=== PATIENT | male | born 1985 | race Caucasian/White ===

== ENCOUNTER 2019-10-22 10:37 | Emergency (ER) | payer SELFPAY ==
[~2019-10-22] VITALS: Ht 175.3 cm; Wt 79.5 kg
[2019-10-22 11:17] VITALS: BP 145/67
[2019-10-22] MEDS ORDERED: fentaNYL PF VIAL 100 MCG/2 ML VIAL IM STA (12:08)
--- NOTE | 2019-10-22 12:26 | PHYS DOC ---
Past Medical History Past Medical History: No Pertinent History Smoking Status: Never Smoker Alcohol Use: Occasionally Adult General Chief Complaint Chief Complaint: LOWER BACK PAIN OR INJURY HPI HPI Patient is a 34 year old male who presents with lower back pain after he fell off his front porch onto his chain-link fence on Monday. The patient rates his pain 10 out of 10 in severity and reports lumbar and thoracic tenderness. Denies take any medicine prior to arrival with exception ibuprofen. Denies blood thinner use. Complete ROS were reviewed and found to be within normal limits, except as doc umented in the HPI Current Medications Current Medications Current Medications Medications (Trade) Dose Ordered Sig/Rodney Start Time Stop Time Status Last Admin Dose Admin Fentanyl Citrate (Fentanyl 2ml Vial) 100 mcg 1X STAT 10/22/19 12:08 10/22/19 12:11 DC 10/22/19 12:30 100 MCG Allergies Allergies Allergies Coded Allergies Type Severity Reaction Last Updated Verified doxycycline Allergy Severe rash 10/22/19 Yes Physical Exam Physical Exam Constitutional: Well developed, well nourished, no acute distress, non-toxic appearance. [] HENT: Normocephalic, atraumatic, bilateral external ears normal, oropharynx moist, no oral exudates, nose normal. [] Eyes: PERRLA, EOMI, conjunctiva normal, no discharge. [] Skin: Warm, dry, no erythema, no rash. [] Back: No tenderness, no CVA tenderness. [] Extremities: Lumbar and Throacic spine tenderness on palpation. No bruising or edema noted. Neurologic: Alert and oriented X 3, normal motor function, normal sensory f unction, no focal deficits noted. [] Psychologic: Affect normal, judgement normal, mood normal. [] Current Patient Data Vital Signs Vital Signs Date Time Temp Pulse Resp B/P (MAP) Pulse Ox O2 Delivery O2 Flow Rate FiO2 10/22/19 11:17 97.8 71 16 145/67 (93) 99 Room Air 97.8 EKG EKG [] Radiology/Procedures Radiology/Procedures [][facility] [address] [place] [address] IMAGING REPORT Signed PATIENT: ALLISON WILKES ACCOUNT: [id number] : 1985 LOCATION: ER AGE: 34 SEX: M EXAM STATUS: REG ER ORD. PHYSICIAN: DOMINIQUE ANNE APRN REASON: fall, back pain PROCEDURE: CT THORACIC SPINE WO CONTRAST PQRS Compliance Statement: One or more of the following individualized dose reduction techniques were utilized for this examination: 1. Automated exposure control 2. Adjustment of the mA and/or kV according to patient size 3. Use of iterative reconstruction technique CT LUMBAR SPINE WO CONTRAST, CT THORACIC SPINE WO CONTRAST Clinical Indication: Fall, back pain. Comparison: None. TECHNIQUE: Helical CT imaging of the thoracic and lumbar spine is performed without IV contrast. Findings: There is no acute fracture of the thoracic spine. The vertebral body height and alignment are maintained. There is no disc space narrowing. 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 No narrowing of the central canal is seen. No bony neural foraminal narrowing is seen. Visualized lungs are clear. There is no acute fracture of the lumbar spine. The sacroiliac joints are symmetric. The vertebral body height and alignment are maintained. There is no disc space narrowing. No significant narrowing of the central canal. No significant spondylitic disc is seen. There is no high-grade neural foraminal narrowing seen. Visualized retroperitoneum is unremarkable. IMPRESSION: There is no acute fracture or malalignment of the thoracic or lumbar spine. Electronically signed by: Paulo Green MD (10/22/2019 1:04 PM) [id number] DICTATED and SIGNED BY: PAULO GREEN MD DATE: 10/22/19 1304 Course & Med Decision Making Course & Med Decision Making Pertinent Labs and Imaging studies reviewed. (See chart for details) Will get CT lumbar and thoracic. Will give supportive care. Imaging is negative. Will d/c home with Norflex. Dragon Disclaimer Dragon Disclaimer This electronic medical record was generated, in whole or in part, using a voice recognition dictation system. Departure Departure Impression: Primary Impression: Fall Disposition: HOME, SELF-CARE Condition: STABLE Referrals: NO PCP (PCP) Additional Instructions: Thank you for visiting [facility]. We appreciate you trusting us with your care. If any additional problems come up don't hesitate to return to visit us. Please follow up with your primary care provider so they can plan additional care if needed and know about the problem that you had. If symptoms worsen come back to the Emergency Department. Any concerning symptoms that start such as chest pain, shortness of air, weakness or numbness on one side of the body, running high fevers or any other concerning symptoms return to the ER. Scripts Orphenadrine Citrate (ORPHENADRINE CITRATE) 100 Mg Tablet.er 100 MG PO BID PRN for MUSCLE PAIN for 5 Days, #10 TAB.SR Prov: DOMINIQUE ANNE APRN 10/22/19 Problem Qualifiers Primary Impression: Fall Encounter type: initial encounter Qualified Codes: W19.XXXA - Unspecified fall, initial encounter DOMINIQUE ANNE APRN Oct 22, 2019 12:26
--- NOTE | 2019-10-22 13:07 | RAD ---
PQRS Compliance Statement: One or more of the following individualized dose reduction techniques were utilized for this examination: 1. Automated exposure control 2. Adjustment of the mA and/or kV according to patient size 3. Use of iterative reconstruction technique CT LUMBAR SPINE WO CONTRAST, CT THORACIC SPINE WO CONTRAST Clinical Indication: Fall, back pain. Comparison: None. TECHNIQUE: Helical CT imaging of the thoracic and lumbar spine is performed without IV contrast. Findings: There is no acute fracture of the thoracic spine. The vertebral body height and alignment are maintained. There is no disc space narrowing. 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 No narrowing of the central canal is seen. No bony neural foraminal narrowing is seen. Visualized lungs are clear. There is no acute fracture of the lumbar spine. The sacroiliac joints are symmetric. The vertebral body height and alignment are maintained. There is no disc space narrowing. No significant narrowing of the central canal. No significant spondylitic disc is seen. There is no high-grade neural foraminal narrowing seen. Visualized retroperitoneum is unremarkable. IMPRESSION: There is no acute fracture or malalignment of the thoracic or lumbar spine. Electronically signed by: Paulo Mora MD (10/22/2019 1:04 PM) [id number]
[2019-10-22] MEDS ORDERED: ORPH100T PO (13:57)
== END 2019-10-22 15:05 | disposition home or self-care (01) ==
LOC: ER 10:37
DX: G89.11 Acute pain due to trauma (principal); M54.5 Low back pain; M54.6 Pain in thoracic spine; Z88.1 Allergy status to other antibiotic agents; W19.XXXA Unspecified fall, initial encounter; Y93.89 Activity, other specified; Y92.89 Other specified places as the place of occurrence of the external cause; Y99.8 Other external cause status
CPT/HCPCS: 72128; 72131; 96372; 99285; J3010

== ENCOUNTER 2021-05-04 20:24 | Emergency (ER) | payer SELFPAY ==
[~2021-05-04] VITALS: Ht 172.7 cm; Wt 81.0 kg
[~2021-05-04 20:24] MED LIST: ORPH100T PO
[2021-05-04 20:42] VITALS: BP 157/95
--- NOTE | 2021-05-04 21:15 | PHYS DOC ---
Past Medical History Past Medical History: No Pertinent History Past Surgical History: Tonsillectomy Smoking Status: Never Smoker Alcohol Use: Occasionally General Adult EDM: Chief Complaint: WEAKNESS/GENERALIZED HPI: HPI: Patient is a 35 year old who is been vaccinated against COVID-19 presents with a chief complaint of generalized weakness and shortness of breath. Patient states symptoms been ongoing for 1 day. States he has been recently exposed to Covid positive family member. Patient states he previously had Covid and had the same exact symptoms he has now. Patient is requesting a Covid test due to having young family at home particularly a 1-year-old child. Patient is not hypoxic oxygen saturation 99 200% on room air. Review of Systems: Review of Systems: Review of systems: Constitutional symptoms- No fever, no chills. Eyes- No Discharge, No Visual Loss Respiratory symptoms- Positive shortness of breath, No wheezing, No Dyspnea on Exertion Cardiovascular Systems; No chest pain, No Palpitations, No syncope Gastrointestinal symptoms: NO abdominal pain, no nausea, no vomiting or diarrhea. Genitourinary symptoms: No dysuria. Musculoskeletal symptoms: No back pain No extremity pain. NEUROLOGICAL Symptoms: No headache, Positive generalized weakness; No focal Weakness Skin: No rash. Heart Score: C/O Chest Pain: N/A Risk Factors: Risk Factors: DM, Current or recent (<one month) smoker, HTN, HLP, family history of CAD, obesity. Risk Scores: Score 0 - 3: 2.5% MACE over next 6 weeks - Discharge Home Score 4 - 6: 20.3% MACE over next 6 weeks - Admit for Clinical Observation Score 7 - 10: 72.7% MACE over next 6 weeks - Early Invasive Strategies Allergies: Allergies: Allergies Coded Allergies Type Severity Reaction Last Updated Verified doxycycline Allergy Severe rash 10/22/19 Yes Physical Exam: PE: Constitutional: Well developed, well nourished, no acute distress, non-toxic appearance. [] HENT: Normocephalic, atraumatic, bilateral external ears normal, oropharynx moist, no oral exudates, nose normal. [] Eyes: PERRLA, EOMI, conjunctiva normal, no discharge. [] Neck: Normal range of motion, no tenderness, supple, no stridor. [] Cardiovascular:Heart rate regular rhythm, no murmur [] Lungs & Thorax: Bilateral breath sounds clear to auscultation [] Abdomen: Bowel sounds normal, soft, no tenderness, no masses, no pulsatile masses. [] Skin: Warm, dry, no erythema, no rash. [] Back: No tenderness, no CVA tenderness. [] Extremities: No tenderness, no cyanosis, no clubbing, ROM intact, no edema. [] Neurologic: Alert and oriented X 3, normal motor function, normal sensory function, no focal deficits noted. [] Psychologic: Affect normal, judgement normal, mood normal. [] Current Patient Data: Vital Signs: Vital Signs Date Time Temp Pulse Resp B/P (MAP) Pulse Ox O2 Delivery O2 Flow Rate FiO2 05/04/21 20:42 98.0 73 18 157/95 (115) 99 Room Air 98.0 EKG: EKG: [] Radiology/Procedures: Radiology/Procedures: [] Course & Med Decision Making: Course & Med Decision Making Pertinent Labs and Imaging studies reviewed. (See chart for details) [] Dragon Disclaimer: [employer] Disclaimer: This electronic medical record was generated, in whole or in part, using a voice recognition dictation system. Departure Departure Impression: Primary Impression: Person under investigation for COVID-19 Disposition: HOME / SELF CARE / HOMELESS Condition: STABLE Referrals: NO PCP (PCP) Patient Instructions: Fatigue, Viral Syndrome Additional Instructions: You have been tested for or diagnosed with COVID-19. It is an infection caused by a new type of coronavirus. COVID-19 will cause cold-like or mild flu symptoms in most. It can cause more severe symptoms like problems breathing in some. There is no treatment for COVID-19. The body will clear the infection over time. Self-care will help to ease discomfort. Steps to Take: Self-Care Rest as needed. Healthy habits may help you feel better. Steps include: Choose healthy foods including fruits and vegetables. Drink water throughout the day. Get plenty of sleep each night. If you smoke, try to quit. It may ease breathing. Avoid alcohol. Keep Others Healthy The virus can spread to others. Droplets are released every time you sneeze or cough. The droplets can get into the mouth, nose, or eyes of people near you and lead to infection. To lower the chances of spreading COVID-19 to others: Stay at home until your doctor has said it is safe to leave. If you tested positive this will mean staying isolated until both of the following are true: At least 7 days have passed since the start of illness. You are free of fever for at least 72 hours without the use of medicine. During this time: - Avoid public areas, events, or transportation. Do not return to work or school until your doctor has said it is safe to do so. - Call ahead if you need to go to a medical center. Let them know you may have COVID-19. It will help them guide you where to go. They may also ask you to wear a facemask when you come to the office. - If you call for emergency medical services, let them know you may have COVID- 19. While at home: - Try to avoid close contact with others. Stay about 6 feet away. - If possible, spend most of your time in a separate room from others. - Use a face mask if you will be in close contact with others such as sharing a room or vehicle. - Have someone wipe down common surfaces in the home. Use household event staff member every day on areas like doorknobs, counters, or sinks. - Cough or sneeze into a tissue. Throw the tissue away right after use. If a tissue is not available, cough or sneeze into your elbow. - Wash your hands often. Wash them after sneezing or coughing. Use soap and water and wash for at least 20 seconds. Alcohol based hand book cleaner can be used if soap and water is not available. - Do not prepare food for others. Avoid sharing personal items like forks, spoons, or toothbrushes. - Avoid close contact with pets while you are sick. There is no evidence of the virus passing to pets. This is a safety step until more is known about this virus. Isolation can be frustrating. Social interaction can help. Keep in touch with friends and family through phone and tech options. You can still interact with others in your home, just keep a safe distance of about 6 feet. Follow-up: Your doctors office will check in with you to see if there are any changes in your health. You may be asked to keep track of symptoms to share with them. They will also let you know when you are clear to be in public again. Problems to Look Out For: Contact your doctor if your recovery is not going as you expect. Get emergency care if you have problems such as: - Trouble breathing - Nonstop chest pain or pressure - Changes in awareness, confusion, or problems waking - Lips or face have bluish color - Worsening of symptoms If you think you have an emergency, call for emergency medical services right away. As taken from [facility] CAROL DIAS DO May 04, 2021 21:15
--- NOTE | 2021-05-05 12:05 | NUR ---
IP: Informed pt of negative covid test. Pt verbalized understanding.
== END 2021-05-04 22:05 | disposition home or self-care (01) ==
LOC: ER 20:24
DX: R06.02 Shortness of breath (principal); Z20.2 Contact with and (suspected) exposure to infections with a predominantly sexual mode of transmission; R53.1 Weakness
CPT/HCPCS: 99283; U0003; U0005